=== PATIENT | male | born 1980 | race African-American/Black ===

== ENCOUNTER 2018-01-06 11:53 | Inpatient (IN) | payer OTHER ==
[~2018-01-06] VITALS: Ht 177.8 cm; Wt 84.6 kg
[2018-01-06 11:58] VITALS: Ht 177.8 cm; Wt 84.6 kg
[2018-01-06] MEDS ORDERED: GEODON20 MG PO (12:14)
[2018-01-06] MEDS ORDERED: GOOD SENSE OMEP20 MG PO (12:15)
[2018-01-06] MEDS ORDERED: NYSTATIN100000 U/M PO (12:16)
[2018-01-06] MEDS ORDERED: DULERA1 AR2 INH (12:16)
[2018-01-06] MEDS ORDERED: KEPPRA1000 M1 PO (12:17)
[2018-01-06] MEDS ORDERED: PREZISTA800 M1 PO (12:18)
[2018-01-06] MEDS ORDERED: FLUOXETINE20 M3 PO (12:18)
[2018-01-06] MEDS ORDERED: EPZICOM1 TAB PO (12:19)
[2018-01-06 12:42] LABS: BASOPHIL % 0.6 % (0-2); PLATELET COUNT 257 x10^3mcL (130-400)
[2018-01-06 12:44] LABS: RED CELL DISTRIBUTION WIDTH 19.5 % (11.5-14.5)
[2018-01-06 12:53] LABS: CALCIUM 7.9 mg/dL (8.5-10.1); CARBON DIOXIDE 25.4 mmol/L (21-32); CHLORIDE SERUM 110 mmol/L (98-107); CREATININE SERUM 0.7 mg/dL (0.7-1.3); GFR1 > 60 mL/min; GLUCOSE SERUM 87 mg/dL (74-106); SODIUM SERUM 144 mmol/L (136-145)
[2018-01-06 12:58] LABS: ALKALINE PHOSPHATASE 73 U/L (46-116); ALT/SGPT 49 U/L (16-63); AST/SGOT 32 U/L (15-37); BILIRUBIN TOTAL 0.41 mg/dL (0.20-1.00); HDL CHOLESTEROL 41 mg/dL (40-60); PHOSPHOROUS 3.4 mg/dL (2.5-4.9); TOTAL PROTEIN, SERUM 5.7 g/dL (6.4-8.2); URIC ACID 4.5 mg/dL (3.5-7.2)
[2018-01-06 12:59] LABS: ALBUMIN 2.7 g/dL (3.4-5.0); CHOLESTEROL 117 mg/dL (<200)
[2018-01-06 14:28] VITALS: BP 98/43
[2018-01-06 14:50] VITALS: BP 98/43
[2018-01-06 16:40] VITALS: BP 101/52
[2018-01-06 20:37] VITALS: BP 106/61
[2018-01-07 04:59] LABS: microscopic required? NO
[2018-01-07 05:24] LABS: UA SPECIFIC GRAVITY >=1.030 (1.005-1.035); urine erythrocyte NEGATIVE (NEGATIVE)
[2018-01-07 05:29] LABS: AMPHETAMINE QUAL UR NONE DETECTED (See below)
[2018-01-07 06:41] VITALS: BP 118/50
[2018-01-07 06:59] LABS: CALCIUM 8.1 mg/dL (8.5-10.1); CARBON DIOXIDE 27.1 mmol/L (21-32); CHLORIDE SERUM 111 mmol/L (98-107); CREATININE SERUM 0.6 mg/dL (0.7-1.3); GFR1 > 60 mL/min; GLUCOSE SERUM 81 mg/dL (74-106); POTASSIUM SERUM 4.2 mmol/L (3.5-5.1); SODIUM SERUM 146 mmol/L (136-145)
[2018-01-07 07:14] LABS: BASOPHIL % 0.4 % (0-2); PLATELET COUNT 242 x10^3mcL (130-400); RED CELL DISTRIBUTION WIDTH 19.7 % (11.5-14.5)
[2018-01-07 08:34] VITALS: BP 110/71
[2018-01-07 13:21] VITALS: BP 112/64
[2018-01-07 16:53] VITALS: BP 116/69
[2018-01-07 20:17] VITALS: BP 105/64
[2018-01-08 05:37] VITALS: BP 112/61
[2018-01-08 09:45] VITALS: BP 109/56
[2018-01-08 16:28] VITALS: BP 109/56
[2018-01-08 17:32] VITALS: BP 115/60
== END 2018-01-08 18:30 | disposition other institution (70) | DRG 314 ==
LOC: ED 11:53 → DU 13:32
PROVIDERS: Emergency Medicine; Internal Medicine
DX: T82.119A Breakdown (mechanical) of unspecified cardiac electronic device, initial encounter (principal); B20 Human immunodeficiency virus [HIV] disease; I49.8 Other specified cardiac arrhythmias; I10 Essential (primary) hypertension; J44.9 Chronic obstructive pulmonary disease, unspecified; G40.909 Epilepsy, unspecified, not intractable, without status epilepticus; E78.5 Hyperlipidemia, unspecified; I25.10 Atherosclerotic heart disease of native coronary artery without angina pectoris; G62.9 Polyneuropathy, unspecified; Y84.8 Other medical procedures as the cause of abnormal reaction of the patient, or of later complication, without mention of misadventure at the time of the procedure; F31.9 Bipolar disorder, unspecified; Z88.0 Allergy status to penicillin; Z95.810 Presence of automatic (implantable) cardiac defibrillator; Z68.23 Body mass index [BMI] 23.0-23.9, adult; Z88.6 Allergy status to analgesic agent; Y92.148 Other place in prison as the place of occurrence of the external cause; Z91.011 Allergy to milk products
CPT/HCPCS: 83880; A9500; J1885; J2270; J2785; Q0092